=== PATIENT | female | born 1935 | race Caucasian/White ===

== ENCOUNTER 2019-09-25 10:16 | Inpatient (IN) ==
[2019-09-25] MEDS ORDERED: NS 1,000 ML IV ONE (10:46)
[2019-09-25] MEDS ORDERED: ZOFRAN IV ONE (10:46)
[2019-09-25] MEDS ORDERED: NS 1,000 ML ONE (10:54)
[2019-09-25 11:34] LABS: URINE SOURCE CATH
--- NOTE | 2019-09-25 11:46 | Diag Imaging Result Doc PS360 ---
EXAM: CHEST-1 VIEW 09/25/2019 HISTORY: cough TECHNIQUE: AP portable upright at 1133 COMMENT: There is ill-defined opacity in the left lower lobe. There is no evidence of acute cardiac or pulmonary disease otherwise. There are no previous studies. IMPRESSION: Atelectasis versus pneumonia left lower lobe. Electronically signed by Levi Noland 09/25/2019 11:43 AM
[2019-09-25 12:04] LABS: BILIRUBIN URINE NEGATIVE (NEGATIVE); BLOOD URINE NEGATIVE (NEGATIVE); COLOR YELLOW; GLUCOSE URINE NEGATIVE (NEGATIVE); KETONE URINE NEGATIVE (NEGATIVE); LEUKOCYTES URINE NEGATIVE (NEGATIVE); NITRITE URINE NEGATIVE (NEGATIVE); PH URINE 5.5; PROTEIN URINE 50 mg/dL (NEGATIVE); SP GRAVITY URINE 1.023; TURBIDITY URINE HAZY (CLEAR); UROBILINOGEN URINE NORMAL (NORMAL)
[2019-09-25 12:06] LABS: UR EPITHELIAL CELLS <10 /HPF (<10); URINE BACTERIA 4+ /HPF; URINE RBC <10 /HPF (<10); URINE WBC <10 /HPF (<10)
[2019-09-25 12:23] LABS: BASO# 0.22 X1000 (0.0-0.2); BASO% 17.2 % (0.0-0.8); HEMATOCRIT 19.9 % (37.0-47.0); HEMOGLOBIN 6.7 g/dL (12.0-16.0); LYMPH# 0.89 X1000 (1.2-3.4); LYMPH% 69.5 % (20.5-51.1); MCHC 33.7 g/dL (33-37); MONO# 0.17 X1000 (0.11-0.59); MONO% 13.3 % (1.7-9.3); MPV 8.2 FL (7.4-10.4); PLT 58 X1000 (130-400); RBC 2.03 XMIL (4.2-5.4); RDW 19.2 % (11.5-14.5); WBC 1.28 X1000 (4.8-10.8)
[2019-09-25 12:30] LABS: ALB/GLOB RATIO 1.1; ALBUMIN 3.1 g/dL (3.5-5.0); CALCIUM 7.8 mg/dL (8.8-10.2); CREATININE 2.3 mg/dL (0.5-0.9); POTASSIUM 5.4 mmol/L (3.5-5.1); TOTAL BILIRUBIN 0.47 mg/dL (0.20-1.00); TOTAL PROTEIN 5.8 g/dL (6.3-8.3)
[2019-09-25 12:34] LABS: LYMPHS 50 % (21-51); MONO 10 % (1-9)
[2019-09-25 12:35] LABS: HYPOCHROM 1+
[2019-09-25 12:38] LABS: INR 1.19; PROTIME 15.3 Seconds (11.0-16.0); PTT 40.8 Seconds (22.3-41.8)
[2019-09-25] MEDS ORDERED: NS 500 ML IV ONE ×2 (12:39→21:21)
[2019-09-25] MEDS ORDERED: ZOSYN 2.25 GM in NS 50 ML IV ONE (12:41)
--- NOTE | 2019-09-25 12:54 | PROVIDER DOCUMENTATION ---
This chart was entered by Maryjane Byers Scribe, acting as scribe for Dru Roche MD. HPI-Abdominal Pain/GI Problem - General Chief Complaint: Weakness Stated Complaint: dehydration/SOB Time Seen by Provider: 09/25/19 10:38 Source: patient Allergies/Adverse Reactions: Patient Allergies Allergy/AdvReac Type Severity Reaction Status Date / Time No Known Allergies Allergy Verified 09/25/19 10:26 Home Medications: Home Medication List Medication Instructions Recorded Confirmed Last Taken Type Carvedilol [Coreg] 12.5 mg PO BID 09/25/19 09/25/19 09/24/19 History Cholecalciferol (Vit D3) [Vitamin 2,000 unit PO DAILY 09/25/19 09/25/19 09/24/19 History D3] Estrogens, Conjugated [Premarin] 0.625 mg PO DAILY 09/25/19 09/25/19 09/24/19 History Insulin Glargine,Hum.rec.anlog 100 unit SQ DIRECTED 09/25/19 09/25/19 Unknown History [Lantus Solostar] Lisinopril [Zestril] 40 mg PO DAILY 09/25/19 09/25/19 09/24/19 History Meclizine [Antivert] 12.5 mg PO DIRECTED PRN 09/25/19 09/25/19 Unknown History Ondansetron HCl [Zofran] 8 mg PO DIRECTED PRN 09/25/19 09/25/19 09/24/19 History Potassium Chloride 10 meq PO DAILY 09/25/19 09/25/19 09/24/19 History Ubidecarenone [Co Q-10] 10 mg PO DAILY 09/25/19 09/25/19 09/24/19 History - History of Present Illness-ABD Nature of Presenting Problems: 84yof presents to ED by EMS cc nausea, vomiting 1 episode, cough, generalized weakness and low grade fever for 2 days. She is a very poor hx and when asked a question luci 'dazes' out. She denies abdominal pain/D/SOB. Pt is lethargic upon exam. Quality of Pain: reports: none Severity in ED: reports: mild Onset/Duration: reports: 2 days ago Timing: reports: still present Activities at Onset: reports: light activity Modifying Factors: improves with: nothing Associated Symptoms: reports: cough, fever/chills, nausea, vomiting. denies: shortness of breath Last BM: unsure # of Vomiting Episodes: 1 Emesis Description: reports: clear Similar Symptoms Previously?: No Recently seen or treated by another doctor?: No Review of Systems - Adult - REVIEW OF SYSTEMS - ADULT ROS:: limited per condition Constitutional: reports: see HPI, chills, fever, fatique Eyes: reports: no symptoms reported Ears, Nose, Mouth & Throat: reports: no symptoms reported Cardiovascular: reports: no symptoms reported Respiratory: reports: see HPI, cough. denies: shortness of breath Gastrointestinal: reports: see HPI, nausea, vomiting. denies: abdominal pain, diarrhea Genitourinary: reports: no symptoms reported Musculoskeletal: reports: no symptoms reported Integumentary: reports: no symptoms reported Neurological: reports: no symptoms reported Psychiatric: reports: no symptoms reported Endocrine: reports: no symptoms reported Hematologic/Lymphatic: reports: no symptoms reported Allergic/Immunologic: reports: no symptoms reported All Other Systems: Reviewed and Negative Past History - Adult - PAST MEDICAL HISTORY-ADULT Review of Records: reports: Nursing Assessment Review, Medications Reviewed, Social history reviewed & non-contributory. Major Childhood Illnesses: reports: denies history Cardiovascular: reports: denies history Respiratory: reports: denies history Gastrointestinal: reports: denies history Obstetrical/Gynecological: reports: denies history Genitourinary: reports: denies history Musculoskeletal: reports: denies history Neurological: reports: denies history Endocrine/Immune: reports: denies history Other Conditions: reports: denies history - IMMUNIZATION STATUS Childhood Immunizations: See Nurse Assessment Flu Vaccine: See Nurse Assessment - FAMILY HISTORY Family History: reviewed, not pertinent Physical Exam-General - PHYSICAL EXAM-ADULT Initial Vital Signs Reviewed: Yes - CONSTITUTIONAL General Appearance: alert, no apparent distress, lethargic. negative: anxious, combative - EYES Eyes: PERRL/EOMI, pink conjunctivae - HEAD, EARS, NOSE, MOUTH & THROAT HENMT: normocephalic/atraumatic, moist mucous membranes. negative: angioedema - NECK Neck: non-tender, full range of motion, supple, normal inspection. negative: lymphadenopathy - RESPIRATORY Respiratory: chest non-tender, lungs clear, normal breath sounds. negative: rhonchi, wheezing - CARDIOVASCULAR Cardiovascular: normal peripheral pulses, regular rate, rhythm. negative: bradycardia, tachycardia - GASTROINTESTINAL (ABDOMEN) Abdominal Exam: normal bowel sounds, non tender, soft. negative: guarding, rebound - LYMPHATIC Lymphatic: no adenopathy. negative: enlargement - MUSCULOSKELETAL Extremity: normal range of motion, non-tender, normal gait, normal inspection. negative: deformity, swelling - SKIN Integumentary: normal color, normal turgor, warm/dry. negative: diaphoresis, jaundice, rash - PSYCHIATRIC Psych/Mental Status: normal mood/affect, oriented x 3. negative: anxious Progress - PLAN OF CARE/RESULTS Progress/Plan/Lab Results: Vital Signs - 8 hr 09/25/19 10:31 Temperature 99.9 F H Pulse Rate 99 H Respiratory Rate 12 Blood Pressure 98/57 O2 Sat by Pulse Oximetry 93 L Laboratory Results - last 24 hr 09/25/19 10:44 POC Glucose 105 H Orders Category Date Time Status Nursing- Obtain EKG ONCE Care 09/25/19 10:42 Active cxr [CHEST-1 VIEW] [RAD] Stat Exams 09/25/19 10:42 Ordered AMYLASE [CHEM] Stat Lab 09/25/19 10:38 Received CBC WITH ELECTRONIC DIFF [HEME] Stat Lab 09/25/19 10:38 Results COMPREHENSIVE METABOLIC PANEL [CHEM] Stat Lab 09/25/19 10:38 Received LIPASE [CHEM] Stat Lab 09/25/19 10:38 Received TROPONIN T HIGH SENSITIVITY Stat Lab 09/25/19 10:38 Received URINALYSIS W/POSS RFLX CULT [URINALYSIS] Stat Lab 09/25/19 11:01 Ordered 0.9% Sodium Chloride Inj [Ns] 1,000 ml Med 09/25/19 10:54 Discontinued .ROUTE As directed 0.9% Sodium Chloride Inj [Ns] 1,000 ml Med 09/25/19 10:46 Active IV 999 mls/hr Ondansetron [Zofran] Med 09/25/19 10:46 Discontinued 4 mg IV NOW ONE EKG [EKG] Stat Ther 09/25/19 10:42 Ordered Result Diagrams: 09/25/19 11:58 09/25/19 11:58 - EKG 1 Time of EKG reading by physician:: 10:49 EKG Read and Signed by:: Dru Roche EKG Interpretation (*Must complete 3 of following elements*): Abnormal (Cannot rule out Septal infarct, age undetermined) Rate: 99 Rhythm: NSR [place]: left QRS: LVH (with repolarization) CO Interval: normal - XRAY 1 XRAY: Bilateral XRAY Study: Chest Impression: See EMR Report (IMPRESSION: Atelectasis versus pneumonia left lower lobe. Electronically signed by Levi Noland 09/25/2019 11:43 AM) - CONSULTS/PCP/HOSPITALIST Notification #1 *Consult/PCP/Hospitalist*: Smiley/S[employer]IOR [employer]ELOPER Time Discussed: 12:47 Consult Disposition: Admit Departure - Departure Date of Disposition Decision: 09/25/19 Time of Disposition Decision: 12:49 DIAGNOSIS: Pneumonia, Pancytopenia, Hyponatremia, Hyperkalemia, Renal insufficiency, Sepsis Disposition: ADMITTED INPATIENT 09 Certified Medical Emergency: Emergent Condition: Fair Referrals and Follow-Ups: Rambo Butler MD [Primary Care Provider] - - Critical Care Note This patient required my direct & personal management of CC.: No Total Time (mins): 35 Critical Care Statement: This patient required my direct personal management to treat or rule out processes, the absence of which, could potentiallly result in sudden, clinically significant life or limb threatening deterioration. Attestation - Physician/ CECILIO Attestation Patient care was provided by Advanced Practice Provider:: No The physician spent face to face time with patient:: Yes Advanced Practice Provider documentation review:: Supervising physician onsite and consulted in the evaluation and care of this patient. The physician did have a face to face encounter with the patient. Sepsis: Tissue Perfusion Assmt - Physical Exam Assessment Date: 09/25/19 Time Assessment Initialized: 13:00 Vital Signs: Last Vital Signs Temp 99.9 F H 09/25/19 10:31 Pulse 99 H 09/25/19 10:31 Resp 12 09/25/19 10:31 BP 98/57 09/25/19 10:31 Pulse Ox 93 L 09/25/19 10:31 Height 5 ft 6 in Weight 70.307 kg 09/25/19 13:00 see nurses notes Lung Sounds: lungs clear Heart Sounds: Regular Capillary Refill Time: Less Than 2 Seconds Peripheral Pulse Evaluation: radial (R): 4+, radial (L): 4+ Skin Exam: flushed - Alternative Fluid Bolus Bolus Option: Alternative Fluid Resuscitation Bolus for morbidly obese patients with a BMI >30, Refer to [facility] Body Weight Chart for Reference. - Impression Impression: Tissue Perfusion Adequate - Plan Plan: See Orders This chart was documented by the indicated scribe, (Maryjane Byers, Scribe) and accurately reflects the services I performed and decisions made by me, Dru Roche MD, as attested by the provider's signature.
[2019-09-25] MEDS ORDERED: KAYEXALATE PO ONE (13:01)
[2019-09-25] MEDS ORDERED: NS 1,000 ML IV SCH (14:08)
[2019-09-25] MEDS ORDERED: TYLENOL PO PRN (14:08)
[2019-09-25 14:17] LABS: IRON SATURATION 45 %; TIBC 172 ug/dL; TOTAL IRON 77 ug/dL (49-151); UNBOUND IRON 95 ug/dL (112-346)
--- NOTE | 2019-09-25 15:10 | HISTORY AND PHYSICAL ---
PRIMARY CARE PROVIDER: Dr. Butler. CHIEF COMPLAINT: Fever, nausea with some vomiting, sinus congestion, and low blood pressure. HISTORY OF PRESENT ILLNESS: Ms. Dana Butler is an 84-year-old female with a medical history of diabetes mellitus type 2, hypertension, GERD, hyperlipidemia, diverticulitis, and vertigo, who currently lives at home alone, who has had family, only 1 person family, helping to take care of her to try and decrease her risk of frequent contacts during the pandemic. The granddaughter was contacted by phone who is assisting with medical information. States that she has not been feeling well for at least 7 to 10 days, mostly sinus type issues. Was placed on clindamycin. Had taken about 7 days worth but stopped it due to nausea. Her fever had also decreased at that time, but then it came back up to as high as 100.9. She had 1 spell of emesis. She has been more lethargic since yesterday with increased confusion, increased respiratory rate, lower blood pressure, and so she was brought to the emergency department for these things. She is slightly confused. She is able to tell me her name and where she is at, but somewhat confused conversation. Workup reveals that she is significantly pancytopenic. There is no medical history of this. We are going to consult Hematology to evaluate the cause. There was a repeat in the labs to make sure that this was a correct reading. She will receive blood. She also has a left lower lobe pneumonia on her chest x-ray so she will receive IV antibiotics. She has had decreased p.o. intake so she will get IV fluids and she will also have IV nutritional supplementation as well. We will monitor her on PVC on telemetry. PAST MEDICAL HISTORY: 1. Diabetes mellitus type 2. 2. Hypertension. 3. GERD. 4. Hyperlipidemia. 5. Vertigo. 6. Diverticulitis. SURGICAL HISTORY: Bladder mesh in 2013. SOCIAL HISTORY: No tobacco, alcohol, or illicit drug use. Her recently a little over year ago. Lives at home alone. Is able ambulate without difficulties. FAMILY HISTORY: Heart disease. ALLERGIES: No known drug allergies. HOME MEDICATIONS: 1. Antivert 12.5 mg p.o. p.r.n. 2. CoQ10 10 mg p.o. daily. 3. Coreg 12.5 mg p.o. twice daily. 4. Insulin Lantus 100 units subcutaneous as directed. 5. Potassium chloride 10 mEq p.o. daily. 6. Premarin 0.625 mg p.o. daily. 7. Vitamin D3 2000 units p.o. daily. 8. Lisinopril 40 mg p.o. daily. 9. Zofran 8 mg p.o. p.r.n. REVIEW OF SYSTEMS: Eleven point review of systems were completed and all were negative except for those mentioned in above HPI. She denies any complaints. PHYSICAL EXAMINATION: VITAL SIGNS: Temperature 99.9 degrees, heart rate 99, respiratory rate 12, blood pressure 98/57, O2 saturation was 93% on room air. She is currently on nasal cannula with a saturation of 97. This is not recorded and at the bedside she was actually a little tachypneic where the respiratory rate was in the mid 20s. Blood pressure had gone back up to 112 systolic. GENERAL: Ms. Dana Butler is an 84-year-old female. She is mildly tachypneic but otherwise in no acute distress. She was able to answer some questions appropriately. HEENT: Atraumatic, normocephalic. Pupils are equal and reactive. Extraocular movements were intact. Mucous membranes are dry. Scalp is very dry. NECK: Trachea midline. CARDIOVASCULAR: S1, S2. Tachycardic rate and rhythm. No rubs, gallops, murmurs. There was no lower extremity edema. She did have only +1 dorsalis pedal pulses, +2 radial pulses. Negative for JVD and carotid bruits. PULMONARY: Clear to auscultate in the upper lobes. Bilateral lower lobes were decreased in the bases. Mild accessory muscle use and mild tachypnea. GI: Soft, nontender, nondistended. Positive bowel sounds x4 but decreased. EXTREMITIES: Decreased range of motion. Equal strength in all extremities, but decreased strength in all extremities. NEUROLOGIC: Oriented to name and place only. Followed commands. Sensory was intact. SKIN: Warm, dry, intact. No obvious signs of bruising or bleeding. LABORATORY DATA: White blood cells 1,000, hemoglobin 6.7, hematocrit 12.9, platelet count 58,000, neutrophils 0. Sodium 128, potassium 5.4, BUN 18, creatinine is 2.3, glucose 116, calcium 7.8. Iron is 77, total iron binding capacity is 172, saturation 45, unsaturated 95. T. bilirubin is 0.47, AST 58, ALT is 30. CK 92. Troponins 20. Albumin 3.1, amylase 28, lipase 10, lactate 3.9. Urinalysis, 50 protein, 4+ bacteria, but no nitrites or white count. Cultures: Blood culture is pending. Urine culture pending. IMAGING: Chest x-ray: Atelectasis versus pneumonia in the left lower lobe. ASSESSMENT AND PLAN: 1. Left lower lobe pneumonia. She will be on cefepime and Zyvox as there are signs and symptoms of sepsis and she will receive IV fluid hydration. 2. Possible septic shock. She was little hypotensive. However, white count is super low at 1,000 and she is neutropenic. Lactate was up. She will get IV fluids, broad-spectrum antibiotics, serial lactates. 3. Pancytopenia. Oncology/Hematology has been consulted. 4. Severe anemia. Not from iron deficiency. The iron level is normal. We will send off a stool if we can get a sample to rule out blood. She has had some nausea. She is going to get 2 units of blood. 5. Acute kidney injury, likely secondary to dehydration. She will have normal saline at 75 mL an hour. We will recheck in the morning. 6. Hyponatremia. Again, she is getting saline. 7. Protein calorie malnutrition with lower albumin level and decreased appetite with some nausea. She will have antiemetics as needed. She will be on low-dose Clinimix. We will get her on a diet. 8. Diabetes mellitus type 2. We will do pattern blood glucoses, sliding scale insulin. 9. Neutropenic fever. Please see #1 and #2. She is actually going to be on droplet isolation because we have to rule out COVID-19 but she will need to remain on reverse isolation once it is ruled out. 10. Fever, low white count, elevated lymphocytes, cough, shortness of breath, O2 requirements. We are going to test and rule out for COVID-19. 11. Hyperkalemia. She actually takes potassium supplementation at home; we will stop that. It looks like the ER ordered a dose of Kayexalate. 12. Acute hypoxemic respiratory failure with O2 requirements. Since we are having to rule out for COVID-19 we are going to have to do an inhaler, albuterol Atrovent inhaler. We will do that q.6 hours. We will continue with oxygen supplementation. 13. Deep venous thrombosis prophylaxis. SCDs. The patient's granddaughter, Mena Emery, was contacted via phone for the patient medical information and to give update. Her phone number is . Dictated by DALJIT Louis for Elias Lieberman MD cc: DALJIT Louis MD
[2019-09-25] MEDS ORDERED: COMBIVENT RESPIMAT INHALER INH SCH (16:00)
--- NOTE | 2019-09-25 16:37 | HISTORY AND PHYSICAL ---
ADDENDUM: Patient was seen and examined by me [id number]. All the laboratory, vital signs, and images were reviewed. When I evaluated this patient, she was answering a few questions but not all of them. She was oriented to name. She knows she is in a hospital but she did not know which one. She is not oriented to time. She is following commands on and off. Not sure if she is hard of hearing. Chest x-ray showed the possibility of left lower lobe pneumonia versus atelectasis. She is severely pancytopenic with a neutrophil count of 0 and lymphocyte count 69.5, monocytes 13.3. She seems to be having shortness of breath even though she states that she is not short of breath. She will be receiving 2 units of PRBCs. I will recheck her CBC and CMP at midnight and morning. I will ask hematology/oncology department to evaluate this patient as well. Apparently, she was not feeling well for the past week or so. Apparently, she was complaining of some kind of sinus issues. She received antibiotics with clindamycin but she stopped taking it because she was having nausea and vomiting. Also, she has been having fever that apparently got better during the treatment but then came back up. Apparently, she has been more lethargic recently, tachypneic, and also tachycardic here, low blood pressure, acute kidney injury. Again, this patient has a kidney disease. I do not know if this is an acute on chronic issue or an acute kidney disease but based on her medical history, we were not told that she has chronic kidney disease. Apparently, she has a medical history of diabetes, hypertension, GERD, hyperlipidemia, diverticulitis, and benign vertigo. Due to her current presentation, severe pancytopenia with no neutrophil count, hyponatremia, dehydration, kidney injury, and age, her prognosis seems to be poor. She is remarkably sick. I had a conversation with her granddaughter by phone, who is a nurse practitioner. For now, this patient will be Full Code. I will transfer this patient to the unit. cc: Elias Lieberman MD
[2019-09-25] MEDS: VENTOLIN HFA INH SCH (16:58)
[2019-09-25] MEDS ORDERED: KAYEXALATE ONE (17:03)
[2019-09-25] MEDS ORDERED: CLINIMIX E 4.25%-5% SOLUTION 1,000 ML IV SCH (17:42)
--- NOTE | 2019-09-25 18:35 | EKG Report ---
Test Performed on : 09/25/2019 10:49:40 AM Test Reason : nausea Blood Pressure : / mmHG Vent. Rate : 099 BPM Atrial Rate : 099 BPM P-R Int : 184 ms QRS Dur : 088 ms QT Int : 318 ms P-R-T Axes : -11 -48 121 degrees QTc Int : 408 ms Normal sinus rhythm. Left axis deviation Left ventricular hypertrophy with repolarization abnormality Cannot rule out Septal infarct , age undetermined Abnormal ECG No previous ECGs available Unconfirmed Result
[2019-09-25] MEDS ORDERED: OFIRMEV 1000 MG/ISOTONIC SOLN 1,000 MG/100 ML BOTTLE IV PRN (19:01)
[2019-09-25 20:10] LABS: ALLEN TEST YES; BE -7.6 mmoll (-3.0-3.0); BLOOD TYPE ARTERIAL; METHB 0.9 % (0.0-1.5); O2(CT) 13.6 mL/dL (15.0-23.0); PCO2(98.6) 32 mmHg (35-45); PO2(98.6) 115 mmHg (60-100); SAMPLE BLOOD; SAO2 98.9 % (95.0-100.0); THB 9.8 g/dL (11.5-17.4); pH(98.6) 7.34 (7.35-7.45)
[2019-09-25 20:11] LABS: MODALITY CANNULA
[2019-09-25] MEDS: MAXIPIME 1 GM in NS 50 ML IV SCH (20:13)
[2019-09-25] MEDS: ZYVOX 600 MG/D5W 600 MG/300 ML IVPB IV SCH (20:14)
[2019-09-25] MEDS: HUMULIN R SUBQ SCH ×2 (21:21→22:02)
[2019-09-25] MEDS: LEVOPHED 8 MG in D5 1/2 NS 250 ML IV SCH (22:01)
[2019-09-26] MEDS ORDERED: NEO-SYNEPHRINE 50 MG in NS 250 ML IV SCH (03:15)
[2019-09-26] MEDS ORDERED: LOKELMA POWDER PACKET PO ONE (04:37)
[2019-09-26] MEDS ORDERED: NS 1,000 ML IV SCH (04:38)
[2019-09-26] MEDS ORDERED: NS 1,000 ML IV ONE (04:40)
[2019-09-26] MEDS: LEVOPHED 8 MG in D5 1/2 NS 250 ML IV SCH ×2 (05:07→11:08)
[2019-09-26 05:53] LABS: BASO% 29.4 % (0.0-0.8); HEMATOCRIT 27.7 % (37.0-47.0); HEMOGLOBIN 9.3 g/dL (12.0-16.0); MCH 32.7 PG (27-31); MCHC 33.6 g/dL (33-37); MCV 97.5 FL (81-99); MONO# 0.28 X1000 (0.11-0.59); MONO% 7.5 % (1.7-9.3); MPV 8.9 FL (7.4-10.4); RBC 2.84 XMIL (4.2-5.4); RDW 17.9 % (11.5-14.5); WBC 3.74 X1000 (4.8-10.8)
[2019-09-26] MEDS: VENTOLIN HFA INH SCH (05:57)
[2019-09-26 06:09] LABS: ALB/GLOB RATIO 0.8; ALBUMIN 2.5 g/dL (3.5-5.0); CALCIUM 7.2 mg/dL (8.8-10.2); CREATININE 3.3 mg/dL (0.5-0.9); POTASSIUM 4.9 mmol/L (3.5-5.1); TOTAL BILIRUBIN 1.35 mg/dL (0.20-1.00); TOTAL PROTEIN 5.7 g/dL (6.3-8.3)
[2019-09-26] MEDS: HUMULIN R SUBQ SCH (06:29)
--- NOTE | 2019-09-26 06:47 | Diag Imaging Result Doc PS360 ---
EXAM: CHEST-PORTABLE HISTORY: NG tube placement confirm TECHNIQUE: Two views COMPARISON: 09/25/2019 FINDINGS: A nasogastric tube has been placed since the prior exam. This overlies the esophagus and stomach and appears to be in good position. No interval change in appearance of the chest. IMPRESSION: Nasogastric tube in good position Electronically signed by Sarthak Joe 09/26/2019 6:45 AM
[2019-09-26 07:21] LABS: LYMPHS 57 % (21-51); MONO 6 % (1-9); SEGS 13 % (42-75)
[2019-09-26 07:41] LABS: PLT 38 X1000 (130-400)
[2019-09-26] MEDS ORDERED: KAYEXALATE PO SCH (09:00)
[2019-09-26] MEDS: MAXIPIME 1 GM in NS 50 ML IV SCH (09:22)
[2019-09-26] MEDS: ZYVOX 600 MG/D5W 600 MG/300 ML IVPB IV SCH (09:22)
--- NOTE | 2019-09-26 11:38 | PROGRESS NOTE ---
DATE: 09/26/2019 SUBJECTIVE: This patient is resting comfortably in bed but she seems to be tachypneic. Her blood pressure has been dropping. She is grimacing just a little bit with pain stimulation but she is not following commands or answering any questions for me. Palliative care nurse already talked to the family. It looks like they are going to come by and withdraw care. OBJECTIVE: Vital Signs: When I evaluated this patient at the bedside around 8:30 a.m., the temperature was 96.8 degrees, pulse 94, respiratory rate 23, blood pressure 100/58, oxygen saturation 98 on nasal cannula 2 L. HEENT: Head normocephalic. No trauma. PERRLA. Skin: Pale. Neck: Supple. No JVD. No masses. Central trachea. Chest: Clear to auscultation. Some crepitus and decreased breath sounds mostly at the bases with some accessory muscle use and tachypnea. Coarse breath sounds at the bases as well. Abdomen: Soft, positive bowel sounds. Extremities: She is not following commands and I do not know the strength. She has some edema. Neurological: The patient is lethargic. She is grimacing with pain stimulation but she is not following commands or answering any of my questions. LABORATORY: WBC 3.7, hemoglobin 9.3, hematocrit 27.7, platelets 38,000. Sodium 133, potassium 4.9, chloride 99, bicarbonate 14, BUN 24, creatinine 3.3, glucose 163, calcium 7.2. ASSESSMENT AND PLAN: 1. Septic shock likely due to left lower lobe pneumonia in the setting of pancytopenia which is acute apparently. Patient seems to be getting worse. I will continue with same management for now but the palliative care nurse already contacted the family and they are planning to probably withdraw care today. 2. Pancytopenia. Due to her severe anemia. She received a couple units of PRBCs and the hemoglobin improved from 6.7 to 9.3. She is still thrombocytopenic and her WBC is still low at 3.7. Neutrophil count yesterday was 0. 3. Kidney dysfunction. I am not sure if this is an acute kidney injury or acute on chronic kidney disease because I do not have any previous records, but I do not have any medical history of kidney dysfunction. Since this is getting worse, I contacted earlier today the nephrology department, but like I mentioned before, likely this patient's family will withdraw care. 4. Hyponatremia, better after some hydration. 5. Type 2 diabetes. Continue with same management. 6. Neutropenic fever. Continue with antibiotics. 7. Hyperkalemia, better. 8. Acute hypoxemic respiratory failure. Continue with oxygen supplementation. 9. Deep vein thrombosis prophylaxis with SCD. The patient seems to be remarkably sick. I do not think she will survive this hospitalization. Actually, the family already talked to the palliative care nurse and apparently they are coming by and it looks like they will withdrawal care. For now, we will continue with same management. TIME ATTESTATION: Critical care time 35 minutes. cc: Elias Lieberman MD
[2019-09-26] MEDS ORDERED: MORPHINE IV PRN (12:38)
[2019-09-26] MEDS ORDERED: ATROPINE 1 % OPHTH SOLN SL PRN (12:39)
[2019-09-26] MEDS ORDERED: ATIVAN IV PRN (12:39)
[2019-09-26] MEDS ORDERED: TRANSDERM-SCOP TD PRN (12:40)
[2019-09-26 13:54] VITALS: BP 46/30
--- NOTE | 2019-09-26 16:04 | DISCHARGE SUMMARY ---
ADMISSION DATE: 09/25/2019 DISCHARGE DATE: 09/26/2019 DISCHARGE DIAGNOSES: 1. Septic shock likely due to left lower lobe pneumonia. 2. Severe pancytopenia. 3. Kidney dysfunction. 4. Hyponatremia. 5. Type 2 diabetes. 6. Neutropenic fever. 7. Hyperkalemia. 8. Acute respiratory failure. 9. Elevated liver function tests. 10. Multiorgan failure. PROCEDURES PERFORMED: 1. Chest x-ray dated 09/25/2019 - Impression; atelectasis versus pneumonia at the level of the left lower lobe. 2. Chest x-ray dated 08/26/2019 - Impression; NG tube in good position. HOSPITAL COURSE: Ms. Butler is an 84-year-old female with a past medical history of diabetes, hypertension, GERD, hyperlipidemia, diverticulitis, and benign positional vertigo, who currently lives at home by herself. She has been having family around, only 1 person, helping to take care of her to try to decrease the risk of frequent contact during the pandemic. The granddaughter was contacted by phone, who assisted with medical information. The patient herself was not able to provide any kind of information. As per the granddaughter, she has not been feeling well for the past 7 to 10 days. Apparently she has been having some sinus issues. She was placed on clindamycin. She took about 10 days of treatment and then she stopped it because of nausea. Her fever decreased during the treatment, but came back up as high as 100.9. She has been having nausea and vomiting. She became lethargic since the day before admission with increased confusion and increased respiratory rate and low blood pressure. Because of this, the family brought this patient to the emergency department. She was still confused, but she was able to say her name initially, but then she became more confused. Workup revealed that she was significantly pancytopenic with no medical history of this. Hematology/Oncology was consulted. She also has kidney dysfunction, but there is no history of chronic kidney disease, so probably that was acute. She was also hyponatremic and hyperchloremic. Her bicarbonate level was low. AST was elevated as well as the plasma lactate. She was transferred to the Intensive Care Unit. Initially, this patient was FULL CODE, but then the family decided to put this patient DNR level 1. Today she was more lethargic. She was basically unresponsive. She was grimacing just a little bit with painful stimulation. Palliative care came on board and contacted the family and they have decided to withdraw care. This patient diet at 1:01 p.m., family members were notified. cc: Elias Lieberman MD
== END 2019-09-26 13:01 | disposition expired | DRG 871 ==
LOC: SUPCPDRO → ED 10:16 → 2N 14:16 → ICU 16:40
PROVIDERS: ATTEND Internal Medicine